=== PATIENT | female | born 1960 | race Caucasian/White ===

== ENCOUNTER → 2023-12-25 12:32 | Outpatient (REF) | payer OTHER, SELFPAY | LOC: WDC 12:32 | PROVIDERS: ATTENDING PHYSICIAN Physician Assistant | DX: Z12.31 Encounter for screening mammogram for malignant neoplasm of breast (principal) | CPT/HCPCS: 77063; 77067 ==

== ENCOUNTER → 2024-02-14 11:18 | Outpatient (REF) | payer OTHER, SELFPAY | LOC: OHS 11:18 | PROVIDERS: ATTENDING PHYSICIAN Nurse Practitioner Family | DX: Z23 Encounter for immunization (principal) | CPT/HCPCS: 36415; 86480 ==

== ENCOUNTER → 2024-12-26 10:33 | Outpatient (REF) | payer MEDICARE, SELFPAY | LOC: WDC 10:33 | PROVIDERS: ATTENDING PHYSICIAN Physician Assistant | DX: Z12.31 Encounter for screening mammogram for malignant neoplasm of breast (principal); Z12.39 Encounter for other screening for malignant neoplasm of breast | CPT/HCPCS: 77063; 77067 ==

== ENCOUNTER → 2025-03-09 09:22 | Outpatient (REF) | payer MEDICARE, SELFPAY | LOC: RAD 09:22 | PROVIDERS: ATTENDING PHYSICIAN Nurse Practitioner Family; FAMILY PHYSICIAN Family Medicine | DX: Z85.850 Personal history of malignant neoplasm of thyroid (principal) | CPT/HCPCS: 76536 ==

== ENCOUNTER 2025-04-07 05:01 | Emergency (ER) | payer MEDICARE, SELFPAY ==
[2025-04-07 05:07] VITALS: BP 149/85
[2025-04-07 05:45] LABS: Hematocrit 37.6 % (37.0-47.0); Hemoglobin 12.5 g/dL (12.0-16.0); Mean Corp Hgb Conc. 33.2 g/dL (33.0-37.0); Mean Corpuscular Volume 90.0 fL (81.0-99.0); Nucleated Red Blood Cells % 0 %; Platelet Count 290 10^3/uL (130-400); Red Cell Dist. Width 13.2 % (11.5-14.5)
[2025-04-07 06:07] LABS: ALT (SGPT) 23 U/L (0-35); AST (SGOT) 18 U/L (14-36); Albumin 4.0 g/dl (3.5-5.0); Alkaline Phosphatase 82 U/L (38-126); Blood Urea Nitrogen 18 mg/dl (7-17); Calcium 9.1 mg/dl (8.4-10.2); Carbon Dioxide 28 mmol/L (22-30); Chloride 105 mmol/L (98-107); Glucose 117 mg/dl (70-99); Potassium 4.8 mmol/L (3.5-5.1); Sodium 139 mmol/L (135-145); Total Protein 7.0 g/dl (6.3-8.2); eGFR > 60.00
--- NOTE | 2025-04-07 06:39 | ED.GENMED ---
History of Present Illness
<Abdon Serra Jere, DO - Last Filed: 04/07/25 06:42>
General
Chief Complaint: Musculo-Skeletal Complaint
Time Seen by Provider: 04/07/25 06:05
<Ananth Valerio MD, Resident - Last Filed: 04/07/25 08:47>
General
Source: patient
Exam Limitations: none
History of Present Illness
History of Present Illness:
64 year old female with a past medical history of thyroidectomy comes to the ED with tenderness in her neck and upper back. She says that the symptoms started around 2 and a half weeks ago with just neck tenderness in the mid line along side fever.
She was sleeping for 20hrs each night and thought she might have had a viral disease though she was COVID negative. She felt a bit better after a week but continued to have night sweats and neck pain. The neck pain worsened as the pain started to
radiate downwards down her spine. She reports that she had no trauma that could have caused these symptoms. She also reports that she has had some tingles and numbness in bilateral hands but reports no weakness. She tried using Ibuprofen and a left
over medrol dose pack prescribed by her ENT for her sinuses but did not improve her pain.
Past History
<Ananth Valerio MD, Resident - Last Filed: 04/07/25 08:47>
Past History
ED Past Medical History: Hypothyroidism (Post Thyroidectomy)
ED Past Surgical History: Other (Thyroidectomy)
Social History
Tobacco: Non-smoker
Alcohol: Occasional (2 glasses of wine 4 times a week)
Drug: None
Review of Systems
<Ananth Valerio MD, Resident - Last Filed: 04/07/25 08:47>
Review of Systems
Allergies reviewed?: Yes
Constitutional: Reports sleep disturbance and night sweats
EENT: Reports no symptoms
Respiratory: Reports no symptoms
Cardiac: Reports no symptoms
ABD/GI: Reports no symptoms
: Reports no symptoms
Musculoskeletal: Reports neck pain and back pain
Skin: Reports no symptoms
Neurological: Reports no symptoms
Endocrine: Reports no symptoms
Hematologic/Lymphatic: Reports no symptoms
Psychiatric: Reports no symptoms
Phy Exam
<Ananth Valerio MD, Resident - Last Filed: 04/07/25 08:47>
General Physical Exam
General Presentation: moderate distress
General Skin: warm and dry
General Habitus: normal
General Mental: alert
General Hydration: appears well hydrated
Cardiovascular Exam
Cardiovascular Exam: regular rate/rhythm and no murmur
Pulmonary Exam
Pulmonary Exam: lungs clear, no respiratory distress, no rales, no crackles, no rhonchi and no wheezing
Neurological Exam
Neurological Exam: alert, oriented x3, no motor deficits (bilateral upper extremity motor function in tact) and no sensory deficits (bilateral upper extremity sensory function in tact)
Musculoskeletal Exam
Musculoskeletal Exam: neck pain (midline tenderness around c5-c6), back pain (upper back tenderness around thoracic spine (T1-T2)) and back tenderness
Course
<Abdon Oquendo, DO - Last Filed: 04/07/25 06:42>
Orders/Labs/Results
Orders:
Orders
04/07/25 05:34
CMP [Comprehensive Metabolic Panel] Urgent
Complete Blood Count/With Diff Urgent
04/07/25 06:37
CR Cervical Spine 2 or 3 Vw Urgent
Comment:
Reason For Exam: Midline tenderness
CR Thoracic Spine 3 Views Urgent
Reason For Exam: Midline tenderness
04/07/25 07:07
Ketorolac [Toradol] 30 mg IM NOW STA
Abnormal Lab Results
04/07/25
05:34
RBC 4.18 L 10^6/uL
(4.20-5.40)
MPV 10.6 H fL
(7.4-10.4)
Abs Immat Gran (auto) 0.1 H 10^3/uL
(0-0.05)
Absolute Neuts (auto) 7.2 H 10^3/uL
(1.4-6.5)
Immature Gran % 0.8 H %
(0-0.5)
Neutrophils % 80.9 H %
(42.2-75.2)
Lymphocytes % 13.2 L %
(20.5-51.1)
BUN 18 H mg/dl
(7-17)
Glucose 117 H mg/dl
(70-99)
04/07/25 05:34
04/07/25 05:34
Vital Signs
Initial and Last Documented VS:
Initial Vital Signs
Temp Pulse Resp BP Pulse Ox
98.8 F 84 18 149/85 98
04/07/25 05:07 04/07/25 05:07 04/07/25 05:07 04/07/25 05:07 04/07/25 05:07
Last Documented Vital Signs
Temp Pulse Resp BP Pulse Ox
98.8 F 69 18 146/82 99
04/07/25 05:07 04/07/25 07:52 04/07/25 08:00 04/07/25 07:52 04/07/25 07:52
<Ananth Valerio MD, Resident - Last Filed: 04/07/25 08:47>
Orders/Labs/Results
Orders:
Orders
04/07/25 05:34
CMP [Comprehensive Metabolic Panel] Urgent
Complete Blood Count/With Diff Urgent
04/07/25 06:37
CR Cervical Spine 2 or 3 Vw Urgent
Comment:
Reason For Exam: Midline tenderness
CR Thoracic Spine 3 Views Urgent
Reason For Exam: Midline tenderness
04/07/25 07:07
Ketorolac [Toradol] 30 mg IM NOW STA
Abnormal Lab Results
04/07/25
05:34
RBC 4.18 L 10^6/uL
(4.20-5.40)
MPV 10.6 H fL
(7.4-10.4)
Abs Immat Gran (auto) 0.1 H 10^3/uL
(0-0.05)
Absolute Neuts (auto) 7.2 H 10^3/uL
(1.4-6.5)
Immature Gran % 0.8 H %
(0-0.5)
Neutrophils % 80.9 H %
(42.2-75.2)
Lymphocytes % 13.2 L %
(20.5-51.1)
BUN 18 H mg/dl
(7-17)
Glucose 117 H mg/dl
(70-99)
04/07/25 05:34
04/07/25 05:34
Vital Signs
Initial and Last Documented VS:
Initial Vital Signs
Temp Pulse Resp BP Pulse Ox
98.8 F 84 18 149/85 98
04/07/25 05:07 04/07/25 05:07 04/07/25 05:07 04/07/25 05:07 04/07/25 05:07
Last Documented Vital Signs
Temp Pulse Resp BP Pulse Ox
98.8 F 69 18 146/82 99
04/07/25 05:07 04/07/25 07:52 04/07/25 08:00 04/07/25 07:52 04/07/25 07:52
<Ananth Valerio MD, Resident - Last Filed: 04/07/25 08:47>
MDM/Problems Addressed
Differential Diagnosis Includes:
Musculoskeletal pain, Meningitis, Cervical spine fracture
MDM/Problems Addressed:
CBC and CMP ordered to check for any signs of infection, showed no abnormalities
Will get X-Ray of cervical and thoracic spines to see if there is any evidence of fracture
Will give pain medicine to help control patient being uncomfortable and in pain (unable to lay down). Will give 30mg IM Toradol
<Ananth Valerio MD, Resident - Last Filed: 04/07/25 08:47>
*Pulse Oximetry
SaO2: 98
Oxygen Mode of Delivery: Room air
Patient hypoxic: no
*Critical Care Note
Total Time (30-74mins, 75-104mins- exclusive of procedures): Not Applicable
<Ananth Valerio MD, Resident - Last Filed: 04/07/25 08:47>
Update Note
Update Note:
X-Ray of Cervical Spine and Thoracic spine showed mild degenerative changes but no acute disease process
Patient given a dose of Toradol
Patient given information for Dr. Gonzales at [facility] to follow up for further management of her back pain
Baclofen and Diclofenac prescriptions sent to her pharmacy to help with pain until she is able to follow up with PCP/Ortho
ED Attending Note
<Abdon Oquendo, DO - Last Filed: 04/07/25 06:42>
ED Attending Note
Patient seen and examined by attending physician: Yes
I performed the substantive portion of visit, reviewed & personally made and approve the management plan that is documented in note by myself or DEEP.: Yes
ED Attending Note:
I evaluated the patient at bedside. The patient does have some mild C and T-spine, however her active range of motion is only slightly diminished due to pain. She does appear uncomfortable. She is already tried '' baclofen and has been on
Medrol Dosepak. She states that when she had Toradol IM in the past that hurt too much. She no longer has fevers or chills (last was about 2 weeks ago). Basic blood work including white count unremarkable. She states Zipsor and baclofen has
helped in the past.
<Ananth Valerio MD, Resident - Last Filed: 04/07/25 08:47>
-
Portions of this chart may have been created with voice recognition software.� Occasional wrong word or��sound alike� substitutions may have occurred due to the inherent limitations of voice recognition software.
Discharge Plan
Departure
Patient Disposition: Home (Routine Discharge)
Date of Disposition: 04/07/25
Time of Disposition: 08:04
Patient with high blood pressure during this ER visit?: Yes
Condition: Good
Discharge Problem:
Arthralgia, cervical spine
Instructions: Muscle and Bone Pain (DC)
Prescriptions:
New
baclofen 5 mg tablet
5 mg PO TID 7 Days Qty: 21 0RF
diclofenac potassium 50 mg tablet
50 mg PO BID 7 Days Qty: 14 0RF
Referrals:
NONE,* [Family Provider, Internal Medicine]
Interventions
Interventions:
*Risk Screen - Suicide Last Done: 04/07/25 05:07
*General Assessment Last Done: 04/07/25 06:15
*Neglect/Abuse Screening Last Done: 04/07/25 06:15
*ED- Fall Risk Assessment Last Done: 04/07/25 06:15
*ED COVID-19 Vaccine History Last Done: 04/07/25 06:15
*Nursing Disposition Last Done: 04/07/25 08:24
ED-Musculoskeletal Assessment Last Done: 04/07/25 07:53
Discharge Date and Time
Discharge Date/Time: 04/07/25 08:25
Print Language: SPANISH
[2025-04-07] MEDS: TORADOL 30 MG IM (07:39)
[2025-04-07 07:51] VITALS: BMI 24.4
[2025-04-07 07:52] VITALS: BP 146/82
== END 2025-04-07 08:25 | disposition home or self-care (01) ==
LOC: EMR 05:01
PROVIDERS: Emergency Medicine; EMERGENCY PHYSICIAN Emergency Medicine
DX: M54.2 Cervicalgia (principal); M54.6 Pain in thoracic spine; E89.0 Postprocedural hypothyroidism
CPT/HCPCS: 96372; 99284; 72040; 72072; 80053; 85025

== ENCOUNTER 2025-08-31 11:42 | Emergency (ER) | payer SELFPAY ==
[2025-08-31 11:43] VITALS: BP 147/82
--- NOTE | 2025-08-31 12:56 | ED.GENMED ---
History of Present Illness
General
Chief Complaint: Blood and Body Fluid Exposure
Source: patient
Exam Limitations: none
Time Seen by Provider: 08/31/25 12:43
Nursing documentation reviewed up to this point in time: agreed with
History of Present Illness
History of Present Illness:
see MDM
Past History
Past History
ED Past Medical History: Hypothyroidism (Post Thyroidectomy)
ED Past Surgical History: Other (Thyroidectomy)
Social History
Tobacco: Non-smoker
Alcohol: Occasional (2 glasses of wine 4 times a week)
Drug: None
Phy Exam
Physical Exam
Physical Exam:
GENERAL: Alert , in no apparent distress, comfortable at rest
HEAD: NCAT
CV: cap refill intact to L index finger
SKIN: Warm and dry, visualized small puncture to the left distal middle finger tip fat pad, no blood drawl, no swelling, no tenderness
MUSCULOSKELETAL: full rom of the finger
PSYCH: Normal and appropriate interaction.
Course
Vital Signs
Initial and Last Documented VS:
Initial Vital Signs
Temp Pulse Resp BP Pulse Ox
36.7 C 84 19 147/82 98
08/31/25 11:43 08/31/25 11:43 08/31/25 11:43 08/31/25 11:43 08/31/25 11:43
Last Documented Vital Signs
Temp Pulse Resp BP Pulse Ox
36.7 C 84 19 147/82 98
08/31/25 11:43 08/31/25 11:43 08/31/25 11:43 08/31/25 11:43 08/31/25 12:58
MDM/Problems Addressed
Differential Diagnosis Includes:
see MDM
MDM/Problems Addressed:
Note:
CHIEF COMPLAINT(S)
Needlestick injury.
HISTORY OF PRESENT ILLNESS
The patient, a 65-year-old female, presented after experiencing a needlestick injury earlier in the day. She was preparing to administer a Eligard injection for a patient with prostate cancer when the incident occurred. The patient detailed that she
was in the process of pinching the skin to administer the subcutaneous injection when the patient moved unexpectedly, causing her to accidentally prick herself with the needle. Importantly, the needle did not penetrate the patients skin nor was any
medication injected into the patient or into herself. There was a minimal amount of blood from her own finger, which she promptly cleaned with alcohol. The patient was not concerned about potential exposures but reports no known HIV or Hepatitis
infections from the patient involved.
She also did not push down on the syringe, and did not inject herself
PHYSICAL EXAM
- Manual Examination:
- No visible signs of infection or significant injury were noted on the finger affected by the needlestick.
- Nursing notes reviewed and vital signs reviewed.
PLAN
- No prophylaxis for HIV or Hepatitis recommended as the risk of exposure is exceedingly low, given that the needle did not go through another individual before the patient pricked herself.
- Offered tetanus booster if due, but patient believes her last tetanus shot was within 10 years and did not request an update.
- The patient was advised to follow up with occupational health services as a protocol for needlestick injuries, although deemed unnecessary based on the lack of patient exposure.
DIFFERENTIAL DIAGNOSIS
The Differential Diagnosis includes, in no particular order and is not limited to:
1. Non-exposure needlestick injury
2. Soft tissue trauma to the finger
3. Localized infection at the site of needle entry
4. Contusion or minor laceration
5. Anxiety due to potential exposure concerns
6. Patient-reported hypersensitivity
7. Minor dermatitis or skin irritation
8. Mechanical injury during injection preparation
9. Occupational hazard exposure
10. Needle phobia or stress reaction
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 She says she pinched the patient's flank skin and was going to inject with
her right hand and accidentally the patient moved causing her to stick her left middle finger with the needle tip. She did not push on the syringe so she did not get any subcu injection into her finger, she was wearing gloves at the time. She did
take the glove off and had a small drop of blood which she cleaned off with alcohol prep. She is adamant that she did not stick the patient and then stick herself.
So this is a puncture wound only and not technically a needlestick exposure to bodily fluids. DC to home
*Pulse Oximetry
SaO2: 98
Patient hypoxic: no (98)
*Critical Care Note
Total Time (30-74mins, 75-104mins- exclusive of procedures): Not Applicable
ED Attending Note
-
Portions of this chart may have been created with voice recognition software.� Occasional wrong word or��sound alike� substitutions may have occurred due to the inherent limitations of voice recognition software.
Discharge Plan
Departure
Patient Disposition: Home (Routine Discharge)
Date of Disposition: 08/31/25
Time of Disposition: 12:58
Patient with high blood pressure during this ER visit?: No
Condition: Fair
Covid-19: Not Applicable
Discharge Problem:
Needlestick injury accident
Instructions: Puncture Wound
Prescriptions:
No Action
baclofen 5 mg tablet
5 mg PO TID 7 Days Qty: 21 0RF
diclofenac potassium 50 mg tablet
50 mg PO BID 7 Days Qty: 14 0RF
Stand Alone Forms: Bl/Fluid Consent/Declination
Activity Restrictions/Additional Instructions:
You did not have any significant injury today. Keep it clean and dry. Follow-up with [facility] as needed
Interventions
Interventions:
*General Assessment Last Done: 08/31/25 11:47
*Neglect/Abuse Screening Last Done: 08/31/25 11:47
*ED COVID-19 Vaccine History Last Done: 08/31/25 11:47
*ED Influenza Vaccine History Last Done: 12/22/25 11:47
*Risk Screen - Suicide (C-SSRS) Last Done: 08/31/25 11:47
Discharge Date and Time
Print Language: MACEDONIAN
== END 2025-08-31 13:15 | disposition home or self-care (01) ==
LOC: EMR 11:42
PROVIDERS: EMERGENCY PHYSICIAN Emergency Medicine
DX: S61.233A Puncture wound without foreign body of left middle finger without damage to nail, initial encounter (principal); W46.0XXA Contact with hypodermic needle, initial encounter; Y99.0 Civilian activity done for income or pay; E89.0 Postprocedural hypothyroidism
CPT/HCPCS: 99282